=== PATIENT | female | born 1975 | race Caucasian/White ===

== ENCOUNTER 2020-06-06 12:53 | Emergency (ER) | payer BC ==
[~2020-06-06] VITALS: Ht 165.1 cm; Wt 73.0 kg
[2020-06-06 12:55] VITALS: BP_SYST 106
--- NOTE | 2020-06-06 13:00 | NUR ---
BROUGHT BACK TO BED #8 AND TRIAGED. REPORT GIVEN TO EDGAR
--- NOTE | 2020-06-06 13:56 | NUR ---
DR KULKARNI AT BEDSIDE FOR EVALUATION
[2020-06-06] MEDS ORDERED: MECLIZINE HCL 25 MG TABLET (ANITVERT) PO ONE (14:00)
[2020-06-06] MEDS ORDERED: ONDANSETRON 4 MG ODT TAB PO ONE (14:00)
--- NOTE | 2020-06-06 14:30 | NUR ---
Medicated the pt Meclizine and Zofran per MD order.
[2020-06-06 15:01] VITALS: BP_SYST 106
--- NOTE | 2020-06-06 15:01 | NUR ---
Patient given written and verbal discharge instructions and verbalizes understanding. ER MD discussed with patient the results and treatment provided. Patient in stable condition. ID arm band removed. Rx of Maclizine and Zofran given. Patient educated on pain management and to follow up with PMD. Pain Scale 0/10. Opportunity for questions provided and answered. Medication side effect fact sheet provided.
== END 2020-06-06 15:01 | disposition home or self-care (01) ==
LOC: SED 12:53
DX: H81.10 Benign paroxysmal vertigo, unspecified ear (principal); R11.2 Nausea with vomiting, unspecified; E07.9 Disorder of thyroid, unspecified; Z88.6 Allergy status to analgesic agent
CPT/HCPCS: 99283; J8597; Q0162

== ENCOUNTER 2021-05-01 12:24 | Emergency (ER) | payer BC, SELFPAY ==
[~2021-05-01] VITALS: Ht 160 cm; Wt 68.0 kg
[2021-05-01 12:36] VITALS: BP_SYST 149
[2021-05-01] MEDS ORDERED: PSEU30TA36 PO (13:56)
[2021-05-01] MEDS ORDERED: IBUP-1969 PO (13:56)
[2021-05-01 14:20] VITALS: BP_SYST 149
== END 2021-05-01 14:20 | disposition home or self-care (01) ==
LOC: SED 12:24
DX: J40 Bronchitis, not specified as acute or chronic (principal); Z88.1 Allergy status to other antibiotic agents; Z79.899 Other long term (current) drug therapy; Z20.822 Contact with and (suspected) exposure to COVID-19
CPT/HCPCS: 36415; 71045; 86710; 93005; 99285